=== PATIENT | female | born 1985 | race Caucasian/White ===

== ENCOUNTER 2019-09-15 01:51 | Day surgery (SDC) | payer BC, SELFPAY ==
[2019-09-14 09:02] VITALS: BMI 34.9
[2019-09-15 10:59] VITALS: BP 133/72; PULSE 75; RESP 16; TEMP 36.6; O2SAT 100
[2019-09-15] MEDS: LACTATED RINGERS 1,000 ML 30 ML IV CONT (11:20)
--- NOTE | 2019-09-15 12:10 | PM.IMHP ---
H&P: HPI History of Present Illness Chief complaint: Missed AB Narrative: Kamilah Reilly is a 34 year old female with a missed . We have agreed to perform suction D&C. She understands there are risks to the procedure. She understands that injuries may occur that result in severe illness, hospitalization, more surgery. She understands risk of hemorrhage and infection. Review of Systems Constitutional: Constitutional: Reports no additional constitutional complaints, Denies fatigue, Denies headache(s), Denies lethargy and Denies weakness Eyes: Eyes: Reports no additional eye complaints, Denies blurry vision and Denies photophobia ENT: Reports as per HPI, Denies headache(s) and Denies neck pain Cardiovascular: Cardiovascular: Denies chest pain, Denies diaphoresis, Denies leg edema, Denies palpitations and Denies dyspnea Respiratory: Respiratory: Denies hemoptysis, Denies dyspnea and Denies wheezing Gastrointestinal: Gastrointestinal: Denies abdominal pain, Denies melena, Denies bloating, Denies hematochezia, Denies nausea and Denies vomiting Genitourinary: Genitourinary: Reports no additional female genitourinary complaints Musculoskeletal: Musculoskeletal: Denies joint swelling, Denies neck pain, Denies numbness and Denies stiffness Neurologic: Denies Abnormal speech present, Denies confusion, Denies headache(s), Denies numbness and Denies weakness Psychiatric: Psychiatric: Denies anxiety, Denies confusion, Denies depression, Denies homicidal ideation and Denies suicidal ideation Endocrine: Endocrine: Denies fatigue and Denies palpitations Allergic/Immunologic: Allergic/Immunologic: Denies wheezing PMFSH Past Medical History Medical History (Updated 09/15/19 @ 12:11 by Lisa Whiteside MD) Anxiety Depression GERD (gastroesophageal reflux disease) Meds Home Medications and Allergies Home Medications Medication Instructions Recorded Confirmed Type aripiprazole 5 mg PO DAILY 09/14/19 09/15/19 History clonazepam 0.5 mg PO BID PRN 09/14/19 09/14/19 History escitalopram oxalate 20 mg PO DAILY 09/14/19 09/15/19 History esomeprazole magnesium 40 mg PO DAILY 09/14/19 09/15/19 History Allergies Allergy/AdvReac Type Severity Reaction Status Date / Time Penicillins Allergy Unknown HIVES, Verified 09/15/19 11:17 SWOLLEN LIPS, ITCHING Exam Const: General: healthy appearing, comfortable and no acute distress; No confusion Orientation/consciousness: No confusion Eyes: Direct Ophthalmoscopy: No photophobia Resp: Auscultation: clear to auscultation bilaterally, no rales, no rhonchi and no wheezes Cardio: Rate: regular rate Heart sounds: no click, no murmurs and no rubs GI: Inspection: non-distended GI Palp: No abdominal tenderness Auscultation: normal bowel sounds Neuro: General: No confusion Speech: No Abnormal speech present Extrem: General: normal to inspection, no pedal edema and no calf tenderness Assessment and Plan Assessment and plan (1) Missed : Code(s): O02.1 - Missed Status: Acute Assessment and Plan: This patient is a 34-year-old female with a missed . We are going to proceed with suction D&C. She understands the risks, benefits, and alternatives. She has completed the informed consent process and is ready to proceed.
--- NOTE | 2019-09-15 12:12 | WPDANESEPPF ---
Anes - Initial Pre Proc Eval Procedure: Operation Date: 09/15/19 12:30 Proposed Procedures p Suction Dilation and Curettage - Lisa Whiteside MD Date/Time: 09/15/19 12:12 Surgeon: Lisa Whiteside MD Pre Op Diagnosis: Missed AB Patient Data Age: 34 Gender: F Height: 5 ft 7 in Weight: 101.5 kg Last Vital Signs Temp 97.8 F 09/15/19 10:59 Pulse 75 09/15/19 10:59 Resp 16 09/15/19 10:59 BP 133/72 09/15/19 10:59 Pulse Ox 100 09/15/19 10:59 Allergies Allergy/AdvReac Type Severity Reaction Status Date / Time Penicillins Allergy Unknown HIVES, Verified 09/15/19 11:17 SWOLLEN LIPS, ITCHING Home Medications Medication Instructions Recorded Confirmed Type aripiprazole 5 mg PO DAILY 09/14/19 09/15/19 History clonazepam 0.5 mg PO BID PRN 09/14/19 09/14/19 History escitalopram oxalate 20 mg PO DAILY 09/14/19 09/15/19 History esomeprazole magnesium 40 mg PO DAILY 09/14/19 09/15/19 History Patient hx anesthesia problems: none Family hx anesthesia problems: none [facility] Past Medical History Medical History (Updated 09/15/19 @ 12:11 by Lisa Whiteside MD) Anxiety Depression GERD (gastroesophageal reflux disease) Anes - Eval Final PreProcedure Day of Procedure 09/15/19 12:12 Patient weight: overweight Heart: regular rate and rhythm Lungs: clear to auscultation Airway: Mallampati scale Last oral intake: >/= 8 hours ASA classification: II Emergent: no Anesthetic plan: proceed Anesthesia type and monitoring: general GIVS and standard monitoring Informed Consent: The patient's anesthetic plan and its attendant risks and benefits were discussed with the patient/family/POA. Questions were solicited and answers provided to the satisfaction of the patient/family/POA.
[2019-09-15] MEDS: IBUPROFEN IV 800 MG/200 ML 800 MG/200 ML BAG 400 MG IVPB (12:15)
[2019-09-15 13:04] VITALS: BP 96/52; PULSE 69; RESP 18; O2SAT 94
--- NOTE | 2019-09-15 13:07 | P.OP_ITS ---
Procedure Note - Detailed Date of procedure: 09/15/19 Pre-op diagnosis: Missed AB Post-op diagnosis: same Procedure performed: Suction D&C Description of procedure: The patient was taken the operating room. She has pr epped and draped in dorsal lithotomy position after induction of mac anesthesia. A speculum was placed in the vagina. The cervix was grasped with a tenaculum. The cervix was injected at 3 and 9:00 a.m. with 1% lidocaine. The cervix was dilated up to 8 mm using Ritchie dilators. An 8 curved plastic suction curette was then applied to the intrauterine cavity. All of the surfaces in the intrauterine cavity were curettage under VAC. A sharp medium-size curette was then used to curettage all the surfaces to confirmed the removal of all the products conception. When all surfaces for bleed to be clean the curette was removed. The suction curette was then reapplied to remove all the debris. The procedure was terminated. The tenaculum was removed. The speculum was removed. The patient tolerated the procedure well. She was taken recovery room in stable condition. Anesthesia: MAC Surgeon: Lisa Whiteside MD Estimated blood loss (mL): 25 Drains: No Packing: No Pathology: yes Complications: No immediate complications Condition: stable Disposition: PACU Findings: Normal vulva vagina and cervix. The moderate amounts of products conception. 8 cm uterus.
[2019-09-15 13:30] VITALS: BP 105/64; PULSE 66; RESP 18; O2SAT 98
[2019-09-15 13:55] VITALS: BP 121/68; PULSE 65; RESP 18
== END 2019-09-15 14:04 | disposition home or self-care (01) ==
PROVIDERS: PCP Internal Medicine; Visit Provider Obstetrics & Gynecology
PROC: (CPT 59820; principal; 2019-09-15 12:30)
DX: O02.1 Missed abortion (principal); K21.9 Gastro-esophageal reflux disease without esophagitis; F41.8 Other specified anxiety disorders
CPT/HCPCS: 59820; 88305; A9270; J0131; J1100; J1741; J2250; J2405; J2704; J3010; J7120